=== PATIENT | male | born 1970 | race Caucasian/White ===

== ENCOUNTER 2019-01-08 14:53 | Emergency (ER) | payer BC ==
[2019-01-08 15:31] VITALS: BP 123/76
--- NOTE | 2019-01-08 15:38 | UC ---
General HPI - HPI Summary HPI Summary: sinus congestion and post nasal drip x 2 weeks. worsening. + purulent drainage. also c/o cough. + wheezing and sometimes sob. no asthma. - History of Current Complaint Chief Complaint: UCRespiratory Stated Complaint: COUGH Time Seen by Provider: 01/08/19 15:27 Hx Obtained From: Patient Onset/Duration: Gradual Onset Timing: Constant Pain Intensity: 0 Associated Signs & Symptoms: Negative: Chest Pain - Allergy/Home Medications Allergies/Adverse Reactions: Allergies Allergy/AdvReac Type Severity Reaction Status Date / Time No Known Allergies Allergy Verified 01/08/19 15:28 PMH/Surg Hx/FS Hx/Imm Hx Previously Healthy: Yes - Surgical History Surgical History: Yes Surgery Procedure, Year, and Place: [facility] - Family History Known Family History: Positive: Hypertension - father - Social History Occupation: Employed Full-time Alcohol Use: Occasionally Substance Use Type: None Smoking Status (MU): Former Smoker Review of Systems All Other Systems Reviewed And Are Negative: Yes ENT: Positive: Nasal Discharge, Sinus Congestion, Sinus Pain/Tenderness Respiratory: Positive: Shortness Of Breath, Cough Physical Exam Triage Information Reviewed: Yes Appearance: Well-Appearing Vital Signs: Initial Vital Signs Temp 98.4 F 01/08/19 15:28 Pulse 61 01/08/19 15:28 Resp 16 01/08/19 15:28 BP 123/76 01/08/19 15:28 Pulse Ox 99 01/08/19 15:28 Vital Signs Reviewed: Yes Eyes: Positive: Conjunctiva Clear ENT: Positive: Pharynx normal, Nasal congestion, TMs normal. Negative: Nasal drainage Neck: Positive: Supple, Nontender, No Lymphadenopathy Respiratory: Positive: No respiratory distress, Decreased breath sounds. Negative: Crackles, Rhonchi Cardiovascular: Positive: RRR, No Murmur Abdomen Description: Positive: Nontender Bowel Sounds: Positive: Present Musculoskeletal: Positive: ROM Intact Neurological: Positive: Alert Psychological: Positive: Age Appropriate Behavior Skin Exam: Normal Course/Dx - Diagnoses Provider Diagnosis: Sinusitis, Bronchitis Discharge - Sign-Out/Discharge Documenting (check all that apply): Patient Departure All imaging exams completed and their final reports reviewed: No Studies - Discharge Plan Condition: Stable Disposition: HOME Prescriptions: Albuterol HFA INHALER* [Ventolin HFA Inhaler*] 2 puff INH Q6H #1 mdi Amoxicillin/Clavulanate TAB* [Augmentin TAB 875*] 875 mg PO BID 10 Days #20 tab Patient Education Materials: Sinusitis (ED), Acute Bronchitis (ED) Referrals: Yahir Lane MD [Primary Care Provider] - 7 Days - Billing Disposition and Condition Condition: STABLE Disposition: Home - Attestation Statements Provider Attestation: Per institutional requirements, I have reviewed the chart, however, I was not consulted specifically or made aware of this patient by the midlevel provider. I did not personally evaluate, interact with , or disposition this patient.
== END 2019-01-08 15:43 | disposition home or self-care (01) ==
LOC: UCCORT 14:53
DX: J32.9 Chronic sinusitis, unspecified (principal); J40 Bronchitis, not specified as acute or chronic; Z87.891 Personal history of nicotine dependence
CPT/HCPCS: 99212; G0463

== ENCOUNTER 2023-11-13 09:15 | Inpatient (IN) ==
[2023-12-04] MEDS ORDERED: ERTApenem 1 GM in NS 0.9% 50 ML 50 ML IVPB SCH
[2023-12-04] MEDS ORDERED: Heparin 5000 UNITS/ML 1 mL VIAL ONE (06:35)
[2023-12-04] MEDS ORDERED: Scopolamine 1 mg/72hr PATCH ONE (06:35)
[2023-12-04] MEDS: Scopolamine 1 mg/72hr PATCH TRANSDERM ONE (06:52)
[2023-12-04] MEDS: Lactated Ringers 1000 ml BAG 1,000 ML IV SCH ×2 (06:54→13:30)
[2023-12-04 07:09] LABS: Rapid COVID-19 Molecular Undetected (Undetected)
[2023-12-04] MEDS ORDERED: Dexamethasone IV 4 MG/ML VIAL 1 ml VIAL ONE (07:10)
[2023-12-04] MEDS ORDERED: fentaNYL 100 mcg/2 ml 50 MCG/ML VIAL ONE ×2 (07:10→10:53)
[2023-12-04] MEDS ORDERED: Lidocaine 2% PF 5 ML VIAL ONE (07:10)
[2023-12-04] MEDS ORDERED: Midazolam 2 mg/2 ml VIAL 1 mg/ml 2 ml VIAL (2 mg) ONE (07:10)
[2023-12-04] MEDS ORDERED: Ondansetron 4 mg VIAL 2 MG/ML 2 ml VIAL ONE (07:10)
[2023-12-04] MEDS ORDERED: Rocuronium 50 mg VIAL 10 mg/ml 5 ml VIAL (50 mg) ONE ×2 (07:10→07:16)
[2023-12-04] MEDS ORDERED: Propofol 10 MG/ML 20 ML BTL ONE (07:10)
[2023-12-04] MEDS ORDERED: Lidocaine 1% VIAL 10 MG/ML 30 ML VIAL ONE (07:14)
[2023-12-04] MEDS ORDERED: Bupivacaine 0.25% EPI 200,000 30 ML SDV ONE (07:14)
[2023-12-04] MEDS ORDERED: Phenylephrine 40 mcg/mL 10mL (400mcg) SYRINGE ONE (07:51)
[2023-12-04] MEDS ORDERED: HYDROmorphone 0.5 MG/0.5 ML SYRINGE ONE (11:11)
[2023-12-04] MEDS ORDERED: HYDROmorphone 1 MG/1 ML SYRINGE IV SLOW PU PRN (11:36)
[2023-12-04] MEDS ORDERED: Ondansetron 4 mg VIAL 2 MG/ML 2 ml VIAL IV PRN ×2 (11:36→12:10)
[2023-12-04] MEDS ORDERED: Metoclopramide 5 MG/ML VIAL (10 mg) IV PRN (12:10)
[2023-12-04] MEDS ORDERED: fentaNYL 100 mcg/2 ml 50 MCG/ML VIAL IV PRN (12:10)
[2023-12-04] MEDS ORDERED: Naloxone 0.4 mg VIAL 0.4 mg/ml 1 ml VIAL IV PRN ×2 (12:10)
[2023-12-04] MEDS: Buffered Lidocaine 1% SYRIN 1 ml INTRADERM ONE (14:32)
[2023-12-04] MEDS ORDERED: HYDROmorphone 0.5 MG/0.5 ML SYRINGE IV SLOW PU PRN (19:05)
[2023-12-05 05:57] LABS: ABS Lymphocytes 0.7 10^3/uL (1.0-4.8); ABS Neutrophils 7.6 10^3/uL (1.5-7.6); Hematocrit 34.6 % (38-53); Lymphocyte % 7.3 %; Mean Corpuscular Hemoglobin 33.3 pg (27-33); Mean Corpuscular Hgb Conc 34.7 g/dL (31-36); Mean Platelet Volume 8.4 fL (7.5-11.2); Platelet Count 180 10^3/uL (150-450); Red Cell Distribution Width 13.5 % (12-17); White Blood Count 9.3 10^3/uL (3.6-10.2)
[2023-12-05 06:14] LABS: Calcium 8.5 mg/dL (8.6-10.3); Creatinine, Serum 1.07 mg/dL (0.67-1.17); Potassium 4.7 mmol/L (3.5-5.0)
[2023-12-05] MEDS: NS 0.9% 500 ml BAG 500 ML IV ONE (07:46)
[2023-12-06 08:50] LABS: ABS Eosinophils 0.1 10^3/uL (0.0-0.5); ABS Lymphocytes 1.5 10^3/uL (1.0-4.8); ABS Monocytes 0.5 10^3/uL (0.0-1.1); ABS Neutrophils 4.5 10^3/uL (1.5-7.6); Eosinophil % 2.1 %; Hematocrit 31.5 % (38-53); Hemoglobin 10.9 g/dL (13.2-16.3); Lymphocyte % 22.1 %; Mean Corpuscular Hemoglobin 33.2 pg (27-33); Mean Corpuscular Hgb Conc 34.5 g/dL (31-36); Mean Corpuscular Volume 96.2 fL (80-97); Nucleated Red Blood Cells % 0.1 %/100WBC (0.0-0.8); Platelet Count 178 10^3/uL (150-450); Red Blood Count 3.27 10^6/uL (4.06-5.63); Red Cell Distribution Width 13.9 % (12-17); White Blood Count 6.7 10^3/uL (3.6-10.2)
[2023-12-06 09:39] LABS: Calcium 8.7 mg/dL (8.6-10.3); Creatinine, Serum 0.97 mg/dL (0.67-1.17); Potassium 4.1 mmol/L (3.5-5.0); eGFR CKD-EPI 93.3 (>60)
[2023-12-06] MEDS: Heparin 5000 UNITS/ML 1 mL VIAL SUBCUT SCH (20:11)
[2023-12-07 10:07] VITALS: BP 134/73
== END 2023-12-07 13:10 | disposition home or self-care (01) | DRG 680 ==
LOC: AA 12-04 06:08 → SSU 12-04 13:20
PROVIDERS: ADMIT Surgery; ATTEND Surgery